=== PATIENT | male | born 1970 | race Caucasian/White ===

== ENCOUNTER 2022-12-09 09:45 | Emergency (ER) | payer OTHER, SELFPAY ==
[2022-12-09 10:05] VITALS: BP 138/76; PULSE 91; RESP 19; TEMP 36.8; O2SAT 98; BMI 36.4
[2022-12-09 10:26] VITALS: BP 138/76; PULSE 91; RESP 19; TEMP 36.8; O2SAT 98
--- NOTE | 2022-12-09 10:26 | EXP.UTC ---
Discharge Plan Disposition Patient Disposition: Home, Self-Care Condition: Good Prescriptions Prescriptions: New prednisone [prednisone] 20 mg tablet 20 mg PO BID Qty: 10 0RF No Action irbesartan 75 mg tablet 75 mg PO DAILY Label Comments: TAKE 1 TABLET BY MOUTH ONCE DAILY Referrals Follow up/Referrals: Hugo Villagomez MD [Primary Care Provider] - See instructions Activity Restrictions/Add. Instructions Additional Instructions/Restrictions: Monitor temperature. Seek treatment if fever develops. Follow-up immediately if new or worse symptoms worsen or no noticeable improvement over 48 hours. Increase fluids such as water, Gatorade, Powerade, juice or Pedialyte with limited formula/dietary in children No food is okay as long as you are drinking. Once ready to eat start bland such as bananas, rice, applesauce, toast. Contagious until no diarrhea, vomiting, fever times 48 hours without medication Avoid antidiarrheals unless told otherwise. Best to let the virus run its course. Follow-up immediately for new or worsening symptoms or no noticeable improvement over the next 48 hours. Clinical Impressions Clinical Impression: Diarrhea Instructions Patient Instructions: DI for Crohns Disease Flare, DI for Crohns Disease Discharge ED Provider: Nilsa ([facility])Jerson [facility] [place] HPI General Stated complaint: possible Crohn flare up Mode of Arrival: Ambulatory Source of Information: Patient Limitations: No Limitations Time Seen by Provider: 12/09/22 10:26 Description of Symptoms (Recalled from Triage Doc. by RN): PATIENT C/O DIARRHEA X 2 DAYS. HE THINKS HE IS HAVING A CROHNS FLARE UP HEENT Symptoms (Recalled from RN notes): No Resp Symptoms (Recalled from RN notes): No Skin Symptoms (Recalled from RN notes): No MS Symptoms (Recalled from RN notes): No Functional Status (Recalled from RN notes): WNL History of Present Illness Provider Complaint: 52 yr old male presents for abd cramping,loss of william, and diarrhea. pt states this is how his normal crohns does when it flares up. pt states he was taking med for hi crohns but symptoms improved and he went off meds. pt states he has not been following his diet. Related Data Home Medications Medication Instructions Recorded Confirmed irbesartan 75 mg tablet 75 mg PO DAILY Hypertension 12/09/22 12/09/22 Previous Rx's Medication Instructions Recorded prednisone 20 mg tablet 20 mg PO BID #10 tabs 12/09/22 Allergies Allergy/AdvReac Type Severity Reaction Status Date / Time No Known Allergies Allergy Verified 08/23/19 11:42 Worker's Comp Is this a Worker's Comp case?: No [facility] Disclaimer: The information contained in this section may have been updated after the patient was seen, as this information can be updated by other users. Medical History , JUNIOR QA ANALYST) Hypertension Surgical History , JUNIOR QA ANALYST) History of hernia repair Social History , JUNIOR QA ANALYST) Smoking Status: Never smoker alcohol intake: never substance use type: denies use current occupational status: employed Travel in the last 8 weeks: None household members: family ROS Obtained: Yes All systems reviewed & no additional complaints except as documented Constitutional Constitutional: Reports system reviewed and no additional complaints, except as documented, Reports as per HPI, Denies fever(s) and Reports poor appetite Eyes Eyes: Reports system reviewed and no additional complaints, except as documented ENT Ears, Nose, Mouth, and Throat: Reports system reviewed and no additional complaints, except as documented Cardiovascular Cardiovascular: Reports system reviewed and no additional complaints, except as documented Respiratory Respiratory: Reports system reviewed and no additional complaints, except as documented Gastroi
== END 2022-12-09 10:40 | disposition home or self-care (01) ==
PROVIDERS: Emergency Provider Nurse Practitioner Family; PCP Family Medicine
DX: R19.7 Diarrhea, unspecified (principal); Z87.19 Personal history of other diseases of the digestive system
CPT/HCPCS: 99212; 99213; G0463

== ENCOUNTER 2023-11-02 11:32 | Outpatient (CLI) | payer BC, SELFPAY ==
--- NOTE | 2023-11-02 11:44 | XR_ITS ---
FINAL REPORT CLINICAL HISTORY: ABDOMINAL PAIN/CONSTIPATION COMPARISON: None FINDINGS: SINGLE VIEW ABDOMEN A single view of the abdomen was obtained. There are multiple air-filled bowel loops in a nonspecific pattern. No abnormal calcifications are identified. IMPRESSION: Multiple air-filled bowel loops in a nonspecific pattern. Reviewed, Interpreted and Dictated by Mark Salgado III, MD Transcribed by Gerda Gutierrez Authenticated and [facility]
== END 2023-11-02 23:59 ==
PROVIDERS: PCP Family Medicine; Visit Provider Family Medicine
DX: R10.84 Generalized abdominal pain (principal); K59.00 Constipation, unspecified
CPT/HCPCS: 74019